=== PATIENT | female | born 1965 | race Caucasian/White ===

== ENCOUNTER 2017-12-07 09:14 | Emergency (ER) | payer MEDICAID ==
[~2017-12-07] VITALS: Ht 152.4 cm; Wt 55.0 kg
[2017-12-07 09:25] VITALS: BP 106/72; PULSE 108; RESP 19; TEMP 98; O2SAT 98
[2017-12-07] MEDS ORDERED: MELO15TA20 PO (10:34)
[2017-12-07] MEDS ORDERED: ROBA500T PO (10:34)
[2017-12-07] MEDS ORDERED: MORP1TAB24 PO (10:34)
[2017-12-07] MEDS ORDERED: XANA2TAB2 PO (10:34)
[2017-12-07] MEDS ORDERED: LITH150C PO (10:34)
[2017-12-07] MEDS ORDERED: SERO400T PO (10:34)
[2017-12-07] MEDS ORDERED: DALBAVANCIN INJ 1,500 MG in DEXTROSE 5% IN WATE 500 ML INJ 500 ML IV STA ×2 (10:50)
[2017-12-07] MEDS ORDERED: ASP: Only reason for admit - IV antibiotics OTHER ONE (11:00)
[2017-12-07] MEDS ORDERED: ASP: Does not meet inpatient admission criteria OTHER ONE (11:00)
[2017-12-07] MEDS ORDERED: ASP: No known hypersensitivity to Vanco, Telavancin, Dalbavancin OTHER ONE (11:00)
[2017-12-07] MEDS ORDERED: LIDOCAINE 1%/EPINEPHrine 1:100,000 SOLN 20 ML VIAL INFIL ONE (11:00)
[2017-12-07] MEDS ORDERED: PHARMACY INFORMATION XX ONE (11:00)
[2017-12-07] MEDS ORDERED: ASP: Location of Dalbavancin administration OTHER ONE (11:00)
[2017-12-07] MEDS ORDERED: IVER5TAB PO (11:04)
[2017-12-07] MEDS ORDERED: AMOX875T PO (11:04)
--- NOTE | 2017-12-07 11:06 | PD ---
HPI Chief Complaint: Skin Problem Time Seen by Provider: 10:43 Travel History International Travel<30 days: No Contact w/Intl Traveler<30days: No Traveled to known affect area: No History of Present Illness HPI The patient was seen and examined in the presence of the nurse. This patient complains of multiple abscesses. 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 She currently has a large one on her right shoulder. There is a smaller one on her right thigh. She has never used IV drugs. Patient lives in a trailer usually in [place] but is in [facility] visiting a friend and came to the ER for these abscesses. Duration 1 week. Severity is moderate. No alleviating factors. No exacerbating factors. She has chronic pain on morphine and Xanax and muscle relaxant. PFSH Past Medical History Hx Anticoagulant Therapy: Yes (XARELTO) Bipolar Disorder: Yes Deep Vein Thrombosis: Yes Medical other: Yes (MULTI ABCESS) Psychiatric: Yes Tetanus Vaccination: Unknown ?: Not Past Surgical History Surgical History: No Previous Surgery Social History Alcohol Use: No Tobacco Use: Yes Substance Use: No Allergies-Medications (Allergen,Severity, Reaction): Coded Allergies: codeine (Verified Allergy, Severe, Hives, 12/07/17) oxycodone (Verified Allergy, Severe, Itching, 12/07/17) Reported Meds & Prescriptions Reported Meds & Active Scripts Active Reported Meloxicam 15 Mg Tab 15 Mg PO DAILY Robaxin (Methocarbamol) 500 Mg Tab 500 Mg PO QID Morphine ER (Morphine Sulfate) 15 Mg Tab 15 Mg PO Q8H Xanax (Alprazolam) 2 Mg Tab 2 Mg PO BID PRN [place] Carbonate 150 Mg Cap 450 Mg PO DAILY Seroquel (Quetiapine Fumarate) 400 Mg Tab 400 Mg PO HS Review of Systems General / Constitutional: No: Fever Eyes: No: Visual changes HENT: No: Headaches Cardiovascular: No: Chest Pain or Discomfort Respiratory: No: Shortness of Breath Gastrointestinal: No: Abdominal Pain Genitourinary: No: Dysuria Musculoskeletal: Positive: Pain Skin: No Rash Neurologic: No: Weakness Psychiatric: No: Depression Endocrine: No: Polydipsia Hematologic/Lymphatic: No: Easy Bruising Physical Exam Narrative GENERAL: Disheveled , well-developed patient in no apparent distress. SKIN: Focused skin assessment reveals no rash. Skin is Warm and dry. Patient has a large skin abscess near the right shoulder. There is a tender area of erythema with fluctuance in the center. There is a much smaller abscess in the proximal right thigh. It is circular raised erythema primarily. HEAD: Atraumatic. Normocephalic. EYES: Pupils equal and round. No scleral icterus. No injection or drainage. ENT: No nasal bleeding or discharge. Mucous membranes pink and moist. NECK: Trachea midline. No JVD. CARDIOVASCULAR: Regular rate and rhythm. No murmur appreciated. RESPIRATORY: No accessory muscle use. Clear to auscultation. Breath sounds equal bilaterally. GASTROINTESTINAL: Abdomen soft, non-tender, nondistended. Hepatic and splenic margins not palpable. MUSCULOSKELETAL: No obvious deformities. No clubbing. No cyanosis. No edema. Surgical scar of the left knee. NEUROLOGICAL: Awake and alert. No obvious cranial nerve deficits. Motor grossly within normal limits. Normal speech. PSYCHIATRIC: Appropriate mood and affect; insight and judgment reasonable . Data Data Last Documented VS Vital Signs Date Time Temp Pulse Resp B/P (MAP) Pulse Ox O2 Delivery O2 Flow Rate FiO2 12/07/17 09:25 98.0 108 19 106/72 (83) 98 Orders Orders Lidocai-Epi 1%-1:100,000 Inj (Xylocaine- (12/07/17 11:00) Consult Infectious Disease (12/07/17 ) Case Management Consult (12/07/17 ) Asp:No Reaction To [facility]av/Vanc (Asp Crit (12/07/17 11:00) Asp: Does Not Meet Inpt Admit (Asp Crit: (12/07/17 11:00) Asp: Iv Antibiotics Admit Only (Asp Crit (12/07/17 11:00) Asp: Location Of Dalbav Admin (Asp Crit: (12/07/17 11:00) Pharmacy Information ([facility] [place] Pharmacy Info (12/07/17 11:00) Dalbavancin Inj (Dalvance Inj) (12/07/17 10:50) Basic Metabolic Panel (Bmp) (12/07/17 10:50) Complete Blood Count With Diff (12/07/17 10:50) Lidocai-Epi 1%-1:100,000 Inj (Xylocaine- (12/07/17 11:30) Acetamin-Codeine 300-30 Mg (Tylenol-Code (12/07/17 11:30) Wound Culture And Gram Stain (12/07/17 11:43) (Hub Use Only)Inafua Brown Cons/Ref (12/07/17 ) Labs Laboratory Tests Test 12/07/17 11:00 White Blood Count 14.0 TH/MM3 Red Blood Count 4.24 MIL/MM3 Hemoglobin 12.7 GM/DL Hematocrit 37.9 % Mean Corpuscular Volume 89.4 FL Mean Corpuscular Hemoglobin 30.1 PG Mean Corpuscular Hemoglobin Concent 33.7 % Red Cell Distribution Width 14.5 % Platelet Count 260 TH/MM3 Mean Platelet Volume 8.3 FL Neutrophils (%) (Auto) 84.7 % Lymphocytes (%) (Auto) 7.1 % Monocytes (%) (Auto) 6.8 % Eosinophils (%) (Auto) 1.2 % Basophils (%) (Auto) 0.2 % Neutrophils # (Auto) 11.9 TH/MM3 Lymphocytes # (Auto) 1.0 TH/MM3 Monocytes # (Auto) 0.9 TH/MM3 Eosinophils # (Auto) 0.2 TH/MM3 Basophils # (Auto) 0.0 TH/MM3 CBC Comment DIFF FINAL Differential Comment Blood Urea Nitrogen 10 MG/DL Creatinine 0.74 MG/DL Random Glucose 91 MG/DL Calcium Level 8.9 MG/DL Sodium Level 136 MEQ/L Potassium Level 4.2 MEQ/L Chloride Level 106 MEQ/L Carbon Dioxide Level 21.9 MEQ/L Anion Gap 8 MEQ/L Estimat Glomerular Filtration Rate 82 ML/MIN MDM Medical Decision Making Medical Screen Exam Complete: Yes Emergency Medical Condition: Yes Medical Record Reviewed: Yes Differential Diagnosis Abscess, cellulitis, boil Narrative Course I have reviewed the patient's electronic medical record. BRENDA Tapia is going to incise and drain her right shoulder abscesses. I do not think the right thigh abscess needs incision and drainage. There is no fluctuance.It is much smaller. She does not look septic nor toxic. She is afebrile I believe she would be a good candidate for Dalvance therapy. I have ordered labs. Assuming her GFR is greater than 30, she will receive 1500 mg over 30 minutes as per protocol. She says that she has a follow-up with her physician on Friday. I gave her 2 pain pills. She says that she can take Tylenol with codeine. She has had them before without trouble. She is not allergic to them despite it being listed on her chart. CBC shows some minor leukocytosis. Metabolic studies normal She has completed her dalvance therapy and plans to recheck with her physician in 2 days. She would rather do this than go to an infectious disease clinic with a physician she does not know. Diagnosis Primary Impression: Abscess of skin Qualified Codes: L02.413 - Cutaneous abscess of right upper limb Additional Impression: Encounter for incision and drainage procedure Additional Instructions: Follow-up with your physician on Friday as scheduled Return if worse Med/Other Pt SpecificInfo: Other Disposition: DISCHARGE HOME Condition: Stable Onofre Montez MD Dec 07, 2017 11:06
[2017-12-07 11:27] LABS: AUTOMATED NEUTROPHIL # 11.9 TH/MM3 (1.8-7.7); BASOPHIL % 0.2 % (0.0-2.0); EOSINOPHIL # 0.2 TH/MM3 (0-0.4); EOSINOPHIL % 1.2 % (0.0-4.0); HEMATOCRIT 37.9 % (35.0-46.0); HEMOGLOBIN 12.7 GM/DL (11.6-15.3); LYMPH % 7.1 % (9.0-44.0); MEAN CELL VOLUME 89.4 FL (80.0-100.0); MEAN CORPUSCULAR HEMOGLOBIN 30.1 PG (27.0-34.0); MEAN CORPUSCULAR HGB CONC 33.7 % (32.0-36.0); MEAN PLATELET VOLUME 8.3 FL (7.0-11.0); MONO % 6.8 % (0.0-8.0); MONOCYTE # 0.9 TH/MM3 (0-0.9); NEUT % 84.7 % (16.0-70.0); PLATELET COUNT 260 TH/MM3 (150-450); RED BLOOD COUNT 4.24 MIL/MM3 (4.00-5.30); RED CELL DISTRIBUTION WIDTH 14.5 % (11.6-17.2)
[2017-12-07] MEDS ORDERED: LIDOCAINE 1%/EPINEPHrine 1:100,000 SOLN 30 ML VIAL INFIL ONE (11:30)
[2017-12-07] MEDS ORDERED: ACETAMINOPHEN/CODEINE 300 MG/30 MG TAB PO ONE (11:30)
--- NOTE | 2017-12-07 11:43 | PD ---
Physical Exam Date Seen by Provider: Dec 07, 2017 Time Seen by Provider: 11:41 Narrative I was asked by Dr. Douglas Ansari to see this patient for large abscess on the right lateral shoulder. Please see my I&D note. Data Data Last Documented VS Vital Signs Date Time Temp Pulse Resp B/P (MAP) Pulse Ox O2 Delivery O2 Flow Rate FiO2 12/07/17 09:25 98.0 108 19 106/72 (83) 98 Orders Orders Lidocai-Epi 1%-1:100,000 Inj (Xylocaine- (12/07/17 11:00) Consult Infectious Disease (12/07/17 ) Case Management Consult (12/07/17 ) Asp:No Reaction To [place]/Vanc (Asp Crit (12/07/17 11:00) Asp: Does Not Meet Inpt Admit (Asp Crit: (12/07/17 11:00) Asp: Iv Antibiotics Admit Only (Asp Crit (12/07/17 11:00) Asp: Location Of Dalbav Admin (Asp Crit: (12/07/17 11:00) Pharmacy Information ([facility] [place] Info (12/07/17 11:00) Dalbavancin Inj (Dalvance Inj) (12/07/17 10:50) Basic Metabolic Panel (Bmp) (12/07/17 10:50) Complete Blood Count With Diff (12/07/17 10:50) Lidocai-Epi 1%-1:100,000 Inj (Xylocaine- (12/07/17 11:30) Acetamin-Codeine 300-30 Mg (Tylenol-Code (12/07/17 11:30) Labs Laboratory Tests Test 12/07/17 11:00 White Blood Count 14.0 TH/MM3 Red Blood Count 4.24 MIL/MM3 Hemoglobin 12.7 GM/DL Hematocrit 37.9 % Mean Corpuscular Volume 89.4 FL Mean Corpuscular Hemoglobin 30.1 PG Mean Corpuscular Hemoglobin Concent 33.7 % Red Cell Distribution Width 14.5 % Platelet Count 260 TH/MM3 Mean Platelet Volume 8.3 FL Neutrophils (%) (Auto) 84.7 % Lymphocytes (%) (Auto) 7.1 % Monocytes (%) (Auto) 6.8 % Eosinophils (%) (Auto) 1.2 % Basophils (%) (Auto) 0.2 % Neutrophils # (Auto) 11.9 TH/MM3 Lymphocytes # (Auto) 1.0 TH/MM3 Monocytes # (Auto) 0.9 TH/MM3 Eosinophils # (Auto) 0.2 TH/MM3 Basophils # (Auto) 0.0 TH/MM3 CBC Comment DIFF FINAL Differential Comment MDM Medical Record Reviewed: Yes Supervised Visit with JUANITO: Yes Procedures Procedure Narrative After the risks and benefits were discussed the following procedure was performed: INCISION AND DRAINAGE OF ABSCESS: The area was prepped and was sterilely draped. A subcutaneous wheal of 1 % Xylocaine with epinephrine with a total number 2.5 mL was used to anesthetize the area. The area was properly anesthetized. A number #11 scalpel was used to make a 1-cm incision across the area of the abscess. Cultures were obtained. The abscess was drained an irrigated with normal saline. Quarter inch iodoform packing was placed in the wound. Sterile dressing applied. Patient advised to have packing removed in two days. Condition: Stable Giorgio Sterling Dec 07, 2017 11:43
[2017-12-07 11:51] LABS: BICARBONATE 21.9 MEQ/L (21.0-32.0); CALCIUM 8.9 MG/DL (8.5-10.1); CREATININE 0.74 MG/DL (0.50-1.00)
[2017-12-07 15:27] VITALS: BP 110/68
== END 2017-12-07 15:50 | disposition home or self-care (01) ==
LOC: NEPD 09:14
DX: L02.413 Cutaneous abscess of right upper limb (principal); D72.829 Elevated white blood cell count, unspecified; G89.29 Other chronic pain; F31.9 Bipolar disorder, unspecified; Z86.718 Personal history of other venous thrombosis and embolism; Z72.0 Tobacco use; Z88.5 Allergy status to narcotic agent; Z79.899 Other long term (current) drug therapy
CPT/HCPCS: 10060; 80048; 85025; 87070; 96374; 99284; J0875; J7060